=== PATIENT | female | born 1995 | race African-American/Black ===

== ENCOUNTER 2018-02-11 11:27 | Emergency (ER) | payer OTHER, SELFPAY | END 2018-02-11 12:51 | disposition home or self-care (01) | LOC: ERS 11:27 | DX: E86.0 Dehydration (principal); Z71.6 Tobacco abuse counseling; F41.9 Anxiety disorder, unspecified; F17.210 Nicotine dependence, cigarettes, uncomplicated | CPT/HCPCS: 99406 ==

== ENCOUNTER 2021-08-12 23:00 | Emergency (ER) | payer SELFPAY | END 2021-08-12 23:41 | disposition left against medical advice (07) | LOC: ERS 23:00 | DX: Z53.21 Procedure and treatment not carried out due to patient leaving prior to being seen by health care provider (principal) ==